=== PATIENT | female | born 1980 | race Caucasian/White ===

== ENCOUNTER 2017-09-15 08:32 | Day surgery (SDC) | payer BC ==
[2017-09-14 09:51] LABS: CHLORIDE,CL 109 mmol/L (98-110); SODIUM,NA 140 mmol/L (136-146)
[~2017-09-15 08:32] MED LIST: Albuterol/Ipratropium 3.0-0.5 MG/3 ML Neb Soln NEB ONE; Fluorescein 5 ML Vial ONE; Sodium Chloride 0.9% 10 ML Syringe FLUSH PRN; Sodium Chloride 0.9% 2.5 ML Syringe FLUSH PRN; ceFAZolin 2 GM in Premix Bag 1 BAG IV ONE
[2017-09-15] MEDS: Lactated Ringers 1,000 ML IV SCH ×3 (09:02→22:16)
--- NOTE | 2017-09-15 09:24 | PCM.PREANE ---
Preanesthetic Assessment - Anesthesia/Transfusion/Family Hx Anesthesia History: Prior Anesthesia Without Reaction Family History of Anesthesia Reaction: No Transfusion History: No Prior Transfusion(s) Intubation History: Unknown - Review of Systems General: No Symptoms Pulmonary: No Symptoms Cardiovascular: No Symptoms Gastrointestinal: No Symptoms Neurological: No Symptoms Other: Reports: None - Physical Assessment NPO Status Date: 09/14/17 NPO Status Time: 23:00 Height: 1.57 m Weight: 116.573 kg ASA Class: 2 Mental Status: Alert & Oriented x3 Airway Class: Mallampati = 2 Dentition: Reports: Broken Tooth/Teeth (x2 upper front incision), Missing Tooth/ Teeth (multiple missing upper and lower on borh sides) Thyro-Mental Finger Breadths: 3 Mouth Opening Finger Breadths: 3 ROM/Head Extension: Full Lungs: Clear to Auscultation, Normal Respiratory Effort Cardiovascular: Regular Rate, Regular Rhythm - Lab Values: Laboratory Last Values WBC 10.15 K/uL (4.0-11.0) 09/14/17 08:45 RBC 4.32 M/uL (4.30-5.90) 09/14/17 08:45 Hgb 13.0 g/dL (12.0-16.0) 09/14/17 08:45 Hct 38.2 % (36.0-46.0) 09/14/17 08:45 MCV 88.4 fL (80.0-98.0) 09/14/17 08:45 MCH 30.1 pg (27.0-32.0) 09/14/17 08:45 MCHC 34.0 g/dL (31.0-37.0) 09/14/17 08:45 RDW Std Deviation 42.6 fl (28.0-62.0) 09/14/17 08:45 RDW Coeff of Eduin 13 % (11.0-15.0) 09/14/17 08:45 Plt Count 283 K/uL (150-400) 09/14/17 08:45 MPV 10.60 fL (7.40-12.00) 09/14/17 08:45 Nucleated RBC % 0.0 /100WBC 09/14/17 08:45 Nucleated RBCs # 0 K/uL 09/14/17 08:45 Sodium 140 mmol/L (136-146) 09/14/17 08:45 Potassium 3.9 mmol/L (3.5-5.1) 09/14/17 08:45 Chloride 109 mmol/L (98-110) 09/14/17 08:45 Carbon Dioxide 24 mmol/L (21-31) 09/14/17 08:45 BUN 9 mg/dL (6.0-23.0) 09/14/17 08:45 Creatinine 0.9 mg/dL (0.6-1.5) 09/14/17 08:45 Est Cr Clr Drug Dosing 68.35 mL/min 09/14/17 08:45 Estimated GFR (MDRD) > 60.0 ml/min 09/14/17 08:45 Glucose 100 mg/dL (60-110) 09/14/17 08:45 Calcium 8.7 mg/dL (8.8-10.8) L 09/14/17 08:45 HCG, Qual NEGATIVE (NEG) 09/14/17 08:45 Blood Type B POSITIVE 09/14/17 08:45 Antibody Screen NEGATIVE 09/14/17 08:45 - Allergies Allergies/Adverse Reactions: Allergies Allergy/AdvReac Type Severity Reaction Status Date / Time Influenza Virus Vaccines Allergy Anaphylactic Verified 09/12/17 16:23 Shock methylprednisolone Allergy Rash Verified 09/12/17 16:23 Sulfa (Sulfonamide Allergy Rash Verified 09/12/17 16:23 Antibiotics) eggs Allergy Hives Uncoded 09/12/17 16:23 - Blood Blood Available: No - Anesthesia Plan Pre-Op Medication Ordered: None - Acknowledgements Anesthesia Type Planned: General Anesthesia Pt an Appropriate Candidate for the Planned Anesthesia: Yes Alternatives and Risks of Anesthesia Discussed w Pt/Guardian: Yes Pt/Guardian Understands and Agrees with Anesthesia Plan: Yes PreAnesthesia Questionnaire Other HEENT History: wears glasses/contacts Respiratory History: Reports: Asthma (mainly exercize induced) 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: 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, 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 Musculoskeletal History: Reports: Back Pain, Chronic, Neck Pain, Chronic Neurological History: Reports: Migraines Psychiatric History: Reports: Anxiety, Depression Endocrine/Metabolic History: Reports: Obesity/BMI 30+ Dermatologic History: Reports: Psoriasis - Past Surgical History GI Surgical History: Reports: Appendectomy, Cholecystectomy Female Surgical History: Reports: Tubal Ligation, Other (See Below) Other Female Surgeries/Procedures: laparoscopies x2 - SUBSTANCE USE Smoking Status *Q: Former Smoker Tobacco Use Within Last Twelve Months: Cigarettes Recreational Drug Use History: No - HOME MEDS Home Medications: Home Meds Acetaminophen 1,000 mg PO Q6H PRN 09/12/17 [History] Albuterol Sulfate [Proair Hfa] 1 - 2 puff INH Q4H PRN 09/12/17 [History] Albuterol [Ventolin HFA] 1 - 2 puff INH Q4H PRN 09/12/17 [History] Beclomethasone Dipropionate [Qvar] 1 puff INH BID 09/12/17 [History] Celecoxib 200 mg PO DAILY 09/12/17 [History] DULoxetine HCl [Duloxetine HCl] 90 mg PO DAILY 09/12/17 [History] Ipratropium/Albuterol Sulfate [Iprat-Albut 0.5-3(2.5) mg/3 ml] 1 dose INH QID [History] Methocarbamol 750 mg PO QID PRN 09/12/17 [History] Topiramate 100 mg PO TID 09/12/17 [History] - CURRENT (IN HOUSE) MEDS Current Meds: Current Medications Lactated Ringer's (Ringers, Lactated) 1,000 mls @ 125 mls/hr IV ASDIRECTED WAQAS Last Admin: 09/15/17 09:02 Dose: 125 mls/hr Sodium Chloride (Saline Flush) 10 ml FLUSH ASDIRECTED PRN PRN Reason: Keep Vein Open Sodium Chloride (Saline Flush) 2.5 ml FLUSH ASDIRECTED PRN PRN Reason: Keep Vein Open Discontinued Medications Albuterol/Ipratropium (Duoneb 3.0-0.5 Mg/3 Ml) 3 ml NEB ONETIME ONE Stop: 09/15/17 07:13 Fluorescein Sodium (Ak-Fluor) Confirm Administered Dose 5 ml .ROUTE .STK-MED ONE Stop: 09/15/17 07:23 Cefazolin Sodium/Dextrose 2 gm (/ Premix) 50 mls @ 100 mls/hr IV ONETIME ONE Stop: 09/14/17 08:57
[2017-09-15] MEDS ORDERED: Albuterol 0.083% 2.5 MG/3 ML Neb Soln ONE (09:29)
[2017-09-15] MEDS ORDERED: Albuterol/Ipratropium 3.0-0.5 MG/3 ML Neb Soln ONE (09:31)
[2017-09-15] MEDS ORDERED: Succinylcholine/Normal Saline 200 MG/10 ML Syringe ONE (09:44)
[2017-09-15] MEDS ORDERED: Ondansetron 4 MG/2 ML SDV ONE (09:44)
[2017-09-15] MEDS ORDERED: Rocuronium 10 MG/ML 10 ML Syringe ONE (09:44)
[2017-09-15] MEDS ORDERED: Lidocaine 2% 5 ML SDV ONE (09:44)
[2017-09-15] MEDS ORDERED: Midazolam 1 MG/ML 2 ML SDV ONE (09:45)
[2017-09-15] MEDS ORDERED: fentaNYL 250 MCG/5 ML SDV ONE (09:45)
[2017-09-15] MEDS ORDERED: Propofol 200 MG/20 ML SDV ONE (09:45)
[2017-09-15] MEDS ORDERED: ceFAZolin 1 GM Vial ONE (09:47)
[2017-09-15] MEDS ORDERED: Sodium Chloride 0.9% 20 ML ONE (09:47)
[2017-09-15] MEDS ORDERED: Furosemide 40 MG/4 ML VIAL ONE (10:38)
[2017-09-15] MEDS ORDERED: fentaNYL 100 MCG/2 ML SDV ONE ×2 (10:40→11:01)
[2017-09-15] MEDS ORDERED: Neostigmine Methylsulfate 1 MG/ML 5 ML Syringe ONE (10:41)
[2017-09-15] MEDS ORDERED: Dexamethasone 4 MG/ML 5 ML MDV ONE (10:48)
[2017-09-15] MEDS ORDERED: ePHEDrine 50 MG/ML SDV ONE (10:49)
[2017-09-15] MEDS ORDERED: Acetaminophen/oxyCODONE 325-5 MG Tab PO PRN (11:24)
[2017-09-15] MEDS ORDERED: Promethazine 25 MG/ML SDV IM PRN (11:24)
[2017-09-15] MEDS ORDERED: Morphine 2 MG/ML Syringe IVPUSH PRN (11:24)
[2017-09-15] MEDS ORDERED: Ondansetron 4 MG/2 ML SDV IVPUSH PRN (11:24)
[2017-09-15] MEDS ORDERED: Morphine 4 MG/ML Syringe IVPUSH PRN (11:24)
[2017-09-15] MEDS ORDERED: Ketorolac 30 MG/ML SDV IVPUSH ONE (11:24)
--- NOTE | 2017-09-15 11:28 | PCM.OPNOTE ---
- General Post-Op/Procedure Note Date of Surgery/Procedure: 09/15/17 Operative Procedure(s): TVH,TVT and Cysto Pre Op Diagnosis: Bleeding, JESUS Post-Op Diagnosis: Same Anesthesia Technique: General ET Tube Primary Surgeon: Vaibhav Moya Pen Tester: Radhika Handy EBL in mLs: 100 Complications: None Condition: Good
[2017-09-15] MEDS: Ketorolac 30 MG/ML SDV IVPUSH PRN ×2 (11:53→18:35)
[2017-09-15] MEDS: fentaNYL 100 MCG/2 ML SDV IVPUSH PRN ×2 (11:54→12:01)
--- NOTE | 2017-09-15 12:21 | OR ---
SURGEON: Vaibhav Moya MD DATE OF PROCEDURE: 09/15/2017 PREOPERATIVE DIAGNOSIS: Menometrorrhagia, stress urinary incontinence. POSTOPERATIVE DIAGNOSIS: Menometrorrhagia, stress urinary incontinence. OPERATION PERFORMED: Total vaginal hysterectomy and tension-free vaginal tape being Solex tension- free vaginal tape and cystoscopy. WESTERN TACK ASSEMBLY LINE WORKER: DANIEL Jasso. ANESTHESIA: General endotracheal intubation, Nikos Esquivel and Dr. Valenzuela. ESTIMATED BLOOD LOSS: 100 mL. COMPLICATIONS: None. FINDINGS: Uterus about 8 weeks' size. Both ovaries essentially normal. Her tube previously was removed from her previous tubal ligation. INDICATIONS FOR SURGERY: Beverly refer to the admit note. PROCEDURE IN DETAIL: The patient was brought to the OR, properly identified, and prepped and draped in sterile fashion as usual and after taken a time-out straight catheter was used to empty the bladder. Short weighted speculum placed in the vagina and then circular incision in the vaginal mucosa was done. Using electrocautery port, the posterior cul-de-sac was entered posteriorly with a Rubi scissor and the peritoneum, and the vagina tacked posteriorly with 2-0 Vicryl and held for further identification. The uterosacral ligament was identified from both sides, clamped with curved Zeppelin, transected, and suture ligated with 2-0 Vicryl pop-off. Same thing was done with the cardinal ligament and then cervicovesical space was entered anteriorly. The bladder retracted completely away from the operative field and the peritoneal cavity was entered anteriorly. Broad ligament was clamped with curved zeppelin from both sides, transected, and suture ligated with 2-0 Vicryl pop-off. The uterine vessel suture ligated at this step. Next, the uterus was delivered posteriorly and then superior pedicle was clamped with 90-degree zeppelin, transected. Both ovaries looked normal and they were preserved. The superior pedicle was tied twice with 2-0 tie and the tube was already removed. The uterosacral ligament and cardinal ligament anchored to the vagina at 3 and 9 o'clock for added vaginal support and then the inspection of the operative field shows no oozing, no bleeding. The vaginal cuff was closed with 2-0 Vicryl interrupted [id number] suture. Once these are done, attention was paid to the anterior vaginal wall and the anterior vaginal beneath the urethra was infiltrated with copious amount of normal saline. It was incised in the midline using electrocautery and dissected in a tunneling fashion to create a tunnel for the Solyx TVT. Once that was created, the Solyx TVT was anchored behind the pubic rami on both sides and with due amount of tension to elevate the urethrovesical angle, and then we proceeded to close the anterior vaginal incision with 2-0 Vicryl continuous interlocking suture. While we were doing that, we asked Anesthesia to give the patient fluorescein and then cystoscopy was performed. The bladder was intact. Both ureteric orifices were seen with the dye coming from both of them, thus the patency of both ureters verified. Satisfied with these findings, the procedure ended. Instrument and sponge count was correct. The patient tolerated the procedure well, went to recovery room in stable general condition. CAESAR ADAN /[id number]
[2017-09-15] MEDS ORDERED: Belladonna Alkaloids/Opium 16.2-30 MG Supp RECTAL ONE (12:24)
[2017-09-15] MEDS ORDERED: Belladonna Alkaloids/Opium 16.2-30 MG Supp ONE (12:25)
--- NOTE | 2017-09-15 12:43 | PCM.POSTAN ---
POST ANESTHESIA ASSESSMENT - MENTAL STATUS Mental Status: Alert, Oriented - RESPIRATORY Respiratory Status: Respiratory Rate WNL, Airway Patent, O2 Saturation Stable - CARDIOVASCULAR CV Status: Pulse Rate WNL, Blood Pressure Stable - GASTROINTESTINAL GI Status: No Symptoms - PAIN Pain Score: 2 - POST OP HYDRATION Hydration Status: Adequate & Stable - OBSERVATIONS Free Text/Narrative:: no anesthesia problems
[2017-09-15] MEDS: Acetaminophen/oxyCODONE 325-5 MG Tab PO PRN (14:16)
[2017-09-16] MEDS: Ketorolac 30 MG/ML SDV IVPUSH PRN (02:03)
[2017-09-16 06:19] LABS: CHLORIDE,CL 106 mmol/L (98-110); SODIUM,NA 137 mmol/L (136-146)
--- NOTE | 2017-09-16 07:34 | PCM48HPAN ---
Post Anesthesia Note - EVALUATION WITHIN 48HRS OF ANESTHETIC Vital Signs in Normal Range: Yes Patient Participated in Evaluation: Yes Respiratory Function Stable: Yes Airway Patent: Yes Cardiovascular Function Stable: Yes Hydration Status Stable: Yes Pain Control Satisfactory: Yes (States having bladder spasms) Nausea and Vomiting Control Satisfactory: Yes (Eating crackers at bedside) Mental Status Recovered: Yes
--- NOTE | 2017-09-16 08:52 | PCM.SURGPN ---
- General Info Date of Service: 09/16/17 POD#: 1 Functional Status: Reports: Pain Controlled - Review of Systems General: Reports: No Symptoms HEENT: Reports: No Symptoms Pulmonary: Reports: No Symptoms Cardiovascular: Reports: No Symptoms Gastrointestinal: Reports: No Symptoms Genitourinary: Reports: No Symptoms Musculoskeletal: Reports: No Symptoms Skin: Reports: No Symptoms Neurological: Reports: No Symptoms Psychiatric: Reports: No Symptoms - Patient Data Vitals - Most Recent: Last Vital Signs Temp 35.6 C 09/16/17 08:32 Pulse 83 09/16/17 08:32 Resp 20 09/16/17 08:32 BP 127/89 09/16/17 08:32 Pulse Ox 96 09/16/17 08:32 Weight - Most Recent: 116.573 kg I&O - Last 24 Hours: Intake & Output 09/15/17 09/16/17 09/16/17 22:59 06:59 14:59 Intake Total 653 2089 Output Total 550 2150 Balance 103 -61 Lab Results Last 24 Hrs: Laboratory Results - last 24 hr 09/16/17 09/16/17 Range/Units 05:14 05:14 WBC 15.38 H (4.0-11.0) K/uL RBC 3.84 L (4.30-5.90) M/uL Hgb 11.6 L (12.0-16.0) g/dL Hct 33.6 L (36.0-46.0) % MCV 87.5 (80.0-98.0) fL MCH 30.2 (27.0-32.0) pg MCHC 34.5 (31.0-37.0) g/dL RDW Std Deviation 40.8 (28.0-62.0) fl RDW Coeff of Eduin 13 (11.0-15.0) % Plt Count 280 (150-400) K/uL MPV 10.40 (7.40-12.00) fL Neut % (Auto) 75.0 (48.0-80.0) % Lymph % (Auto) 17.6 (16.0-40.0) % [place] % (Auto) 7.3 (0.0-15.0) % Eos % (Auto) 0.0 (0.0-7.0) % Baso % (Auto) 0.1 (0.0-1.5) % Neut # (Auto) 11.5 H (1.4-5.7) K/uL Lymph # (Auto) 2.7 H (0.6-2.4) K/uL [place] # (Auto) 1.1 H (0.0-0.8) K/uL Eos # (Auto) 0.0 (0.0-0.7) K/uL Baso # (Auto) 0.0 (0.0-0.1) K/uL Nucleated RBC % 0.0 /100WBC Nucleated RBCs # 0 K/uL Sodium 137 (136-146) mmol/L Potassium 3.7 (3.5-5.1) mmol/L Chloride 106 (98-110) mmol/L Carbon Dioxide 24 (21-31) mmol/L BUN 6 (6.0-23.0) mg/dL Creatinine 0.7 (0.6-1.5) mg/dL Est Cr Clr Drug Dosing 87.87 mL/min Estimated GFR (MDRD) > 60.0 ml/min Glucose 109 (60-110) mg/dL Calcium 8.8 (8.8-10.8) mg/dL Med Orders - Current: Current Medications Fentanyl (Sublimaze) 50 mcg IVPUSH Q5M PRN PRN Reason: Pain (severe 7-10) Stop: 09/16/17 09:38 Last Admin: 09/15/17 12:01 Dose: 50 mcg Lactated Ringer's (Ringers, Lactated) 1,000 mls @ 125 mls/hr IV ASDIRECTED ON LICENSE OF [facility] Last Admin: 09/15/17 22:16 Dose: 125 mls/hr Ketorolac Tromethamine (Toradol) 30 mg IVPUSH Q6H PRN PRN Reason: Pain (severe 7-10) Stop: 09/20/17 11:24 Last Admin: 09/16/17 02:03 Dose: 30 mg Morphine Sulfate (Morphine) 2 mg IVPUSH Q2H PRN PRN Reason: Pain (severe 7-10) Last Admin: 09/15/17 16:23 Dose: 2 mg Morphine Sulfate (Morphine) 4 mg IVPUSH Q2H PRN PRN Reason: Pain (severe 7-10) Last Admin: 09/15/17 12:17 Dose: 4 mg Ondansetron HCl (Zofran) 4 mg IVPUSH Q6H PRN PRN Reason: Nausea/Vomiting Last Admin: 09/15/17 21:05 Dose: 4 mg Oxycodone/Acetaminophen (Percocet 325-5 Mg) 1 tab PO Q4H PRN PRN Reason: Pain (moderate 4-6) Last Admin: 09/15/17 21:03 Dose: 1 tab Oxycodone/Acetaminophen (Percocet 325-5 Mg) 2 tab PO Q4H PRN PRN Reason: Pain (moderate 4-6) Last Admin: 09/15/17 14:16 Dose: 2 tab Promethazine HCl (Phenergan) 25 mg IM Q6H PRN PRN Reason: Nausea/Vomiting Sodium Chloride (Saline Flush) 10 ml FLUSH ASDIRECTED PRN PRN Reason: Keep Vein Open Sodium Chloride (Saline Flush) 2.5 ml FLUSH ASDIRECTED PRN PRN Reason: Keep Vein Open Discontinued Medications Albuterol (Proventil Neb Soln) Confirm Administered Dose 2.5 mg .ROUTE .STK-MED ONE Stop: 09/15/17 09:30 Last Admin: 09/15/17 09:32 Dose: Not Given Albuterol/Ipratropium (Duoneb 3.0-0.5 Mg/3 Ml) 3 ml NEB ONETIME ONE Stop: 09/15/17 07:13 Last Admin: 09/15/17 09:32 Dose: 3 ml Albuterol/Ipratropium (Duoneb 3.0-0.5 Mg/3 Ml) Confirm Administered Dose 3 ml .ROUTE .STK-MED ONE Stop: 09/15/17 09:32 Last Admin: 09/15/17 13:05 Dose: Not Given Belladonna Alkaloids/Opium (B & O Supprettes No. 15a) 1 supp RECTAL ONETIME ONE Stop: 09/15/17 12:25 Last Admin: 09/15/17 12:30 Dose: 1 supp Belladonna Alkaloids/Opium (B & O Supprettes No. 15a) Confirm Administered Dose 1 supp .ROUTE .STK-MED ONE Stop: 09/15/17 12:26 Last Admin: 09/15/17 13:05 Dose: Not Given Cefazolin Sodium (Ancef) Confirm Administered Dose 2 gm .ROUTE .STK-MED ONE Stop: 09/15/17 09:48 Dexamethasone (Dexamethasone) Confirm Administered Dose 20 mg .ROUTE .STK-MED ONE Stop: 09/15/17 10:49 Ephedrine Sulfate (Ephedrine Sulfate) Confirm Administered Dose 50 mg .ROUTE .STK-MED ONE Stop: 09/15/17 10:50 Fentanyl (Sublimaze) Confirm Administered Dose 250 mcg .ROUTE .STK-MED ONE Stop: 09/15/17 09:46 Fentanyl (Sublimaze) Confirm Administered Dose 100 mcg .ROUTE .STK-MED ONE Stop: 09/15/17 10:41 Fentanyl (Sublimaze) Confirm Administered Dose 100 mcg .ROUTE .STK-MED ONE Stop: 09/15/17 11:02 Fluorescein Sodium (Ak-Fluor) Confirm Administered Dose 5 ml .ROUTE .STK-MED ONE Stop: 09/15/17 07:23 Furosemide (Lasix) Confirm Administered Dose 40 mg .ROUTE .STK-MED ONE Stop: 09/15/17 10:39 Glycopyrrolate () Confirm Administered Dose 1 mg .ROUTE .STK-MED ONE Stop: 09/15/17 10:42 Cefazolin Sodium/Dextrose 2 gm (/ Premix) 50 mls @ 100 mls/hr IV ONETIME ONE Stop: 09/14/17 08:57 Last Admin: 09/15/17 13:05 Dose: Not Given Sodium Chloride (Normal Saline) Confirm Administered Dose 20 mls @ as directed .ROUTE .STK-MED ONE Stop: 09/15/17 09:48 Ketorolac Tromethamine (Toradol) 30 mg IVPUSH ONETIME ONE Stop: 09/15/17 11:25 Last Admin: 09/15/17 13:05 Dose: Not Given Lidocaine (Xylocaine-Mpf 2%) Confirm Administered Dose 5 ml .ROUTE .STK-MED ONE Stop: 09/15/17 09:45 Midazolam HCl (Versed 1 Mg/Ml) Confirm Administered Dose 2 mg .ROUTE .STK-MED ONE Stop: 09/15/17 09:46 Neostigmine Methylsulfate (Neostigmine) Confirm Administered Dose 5 mg .ROUTE .STK-MED ONE Stop: 09/15/17 10:42 Ondansetron HCl (Zofran) Confirm Administered Dose 4 mg .ROUTE .STK-MED ONE Stop: 09/15/17 09:45 Propofol (Diprivan 20 Ml) Confirm Administered Dose 200 mg .ROUTE .STK-MED ONE Stop: 09/15/17 09:46 Rocuronium [place] (Zemuron) Confirm Administered Dose 100 mg .ROUTE .STK-MED ONE Stop: 09/15/17 09:45 Succinylcholine Chloride (Succinylcholine In Ns Pf) Confirm Administered Dose 200 mg .ROUTE .STK-MED ONE Stop: 09/15/17 09:45 - Exam Wound/Incisions: Healing Well General: Alert, Oriented HEENT: Pupils Equal Neck: Supple Lungs: Clear to Auscultation, Normal Respiratory Effort Cardiovascular: Regular Rate, Regular Rhythm GI/Abdominal Exam: Normal Bowel Sounds, Soft, Non-Tender, No Organomegaly, No Distention, No Abnormal Bruit, No Mass, Pelvis Stable Extremities: Normal Inspection, Normal Range of Motion, Non-Tender, No Pedal Edema, Normal Capillary Refill Skin: Warm, Dry, Intact Neurological: No New Focal Deficit Psy/Mental Status: Alert, Normal Affect, Normal Mood - Problem List Review Problem List Initiated/Reviewed/Updated: Yes - My Orders Last 24 Hours: Active Orders 24 hr Category Date Time Status Patient Status [ADT] Routine ADT 09/15/17 11:24 Active Notify Provider Vital Signs [RC] ASDIRECTED Care 09/15/17 11:24 Active Oxygen Therapy [RC] ASDIRECTED Care 09/15/17 11:24 Active RT Incentive Spirometry [RC] Q2HWA Care 09/15/17 11:24 Active Up With Assistance [RC] PER UNIT ROUTINE Care 09/15/17 11:24 Active Up ad Indu [RC] PER UNIT ROUTINE Care 09/15/17 11:24 Active Regular Diet [DIET] Diet 09/15/17 Dinner Active Acetaminophen/oxyCODONE [Percocet 325-5 MG] Med 09/15/17 11:24 Active 1 tab PO Q4H PRN Acetaminophen/oxyCODONE [Percocet 325-5 MG] Med 09/15/17 11:24 Active 2 tab PO Q4H PRN Ketorolac [Toradol] Med 09/15/17 11:24 Active 30 mg IVPUSH Q6H PRN Morphine Med 09/15/17 11:24 Active 2 mg IVPUSH Q2H PRN Morphine Med 09/15/17 11:24 Active 4 mg IVPUSH Q2H PRN Ondansetron [Zofran] Med 09/15/17 11:24 Active 4 mg IVPUSH Q6H PRN Promethazine [Phenergan] Med 09/15/17 11:24 Active 25 mg IM Q6H PRN fentaNYL [Sublimaze] Med 09/15/17 09:38 Active 50 mcg IVPUSH Q5M PRN Peripheral IV Discontinue [OM.PC] Routine Oth 09/15/17 11:24 Ordered Sequential Compression Device [OM.PC] Per Unit Routine Oth 09/15/17 11:24 Ordered Resuscitation Status Routine Resus Stat 09/15/17 11:24 Ordered Medication Orders Fentanyl (Sublimaze) 50 mcg IVPUSH Q5M PRN PRN Reason: Pain (severe 7-10) Stop: 09/16/17 09:38 Last Admin: 09/15/17 12:01 Dose: 50 mcg Admin: 09/15/17 11:54 Dose: 50 mcg Lactated Ringer's (Ringers, Lactated) 1,000 mls @ 125 mls/hr IV ASDIRECTED WAQAS Last Admin: 09/15/17 22:16 Dose: 125 mls/hr Infusion: 09/15/17 21:28 Dose: 125 mls/hr Admin: 09/15/17 13:28 Dose: 125 mls/hr Infusion: 09/15/17 13:28 Dose: 125 mls/hr Admin: 09/15/17 09:02 Dose: 125 mls/hr Ketorolac Tromethamine (Toradol) 30 mg IVPUSH Q6H PRN PRN Reason: Pain (severe 7-10) Stop: 09/20/17 11:24 Last Admin: 09/16/17 02:03 Dose: 30 mg Admin: 09/15/17 18:35 Dose: 30 mg Admin: 09/15/17 11:53 Dose: 30 mg Morphine Sulfate (Morphine) 2 mg IVPUSH Q2H PRN PRN Reason: Pain (severe 7-10) Last Admin: 09/15/17 16:23 Dose: 2 mg Morphine Sulfate (Morphine) 4 mg IVPUSH Q2H PRN PRN Reason: Pain (severe 7-10) Last Admin: 09/15/17 12:17 Dose: 4 mg Ondansetron HCl (Zofran) 4 mg IVPUSH Q6H PRN PRN Reason: Nausea/Vomiting Last Admin: 09/15/17 21:05 Dose: 4 mg Oxycodone/Acetaminophen (Percocet 325-5 Mg) 1 tab PO Q4H PRN PRN Reason: Pain (moderate 4-6) Last Admin: 09/15/17 21:03 Dose: 1 tab Oxycodone/Acetaminophen (Percocet 325-5 Mg) 2 tab PO Q4H PRN PRN Reason: Pain (moderate 4-6) Last Admin: 09/15/17 14:16 Dose: 2 tab Promethazine HCl (Phenergan) 25 mg IM Q6H PRN PRN Reason: Nausea/Vomiting Sodium Chloride (Saline Flush) 10 ml FLUSH ASDIRECTED PRN PRN Reason: Keep Vein Open Sodium Chloride (Saline Flush) 2.5 ml FLUSH ASDIRECTED PRN PRN Reason: Keep Vein Open - Assessment Assessment (Free Text/Narrative):: Status post vaginal hysterectomy and patient is doing well on regular diet and voiding without any problem no vaginal bleeding her lab work is within normal limits - Plan Plan (Free Text/Narrative):: I'm sending the patient home today prescription for Percocet 7.5/325 for postoperative pain is given she is to come to see me in the office in 2 weeks
[2017-09-16] MEDS: Acetaminophen/oxyCODONE 325-5 MG Tab PO PRN (10:51)
== END 2017-09-16 11:30 | disposition home or self-care (01) ==
LOC: MW.SDS 08:32 → MW.MS 11:24 → MW.SDS 09-16 11:30
PROVIDERS: ATTEND Obstetrics & Gynecology
DX: N92.1 Excessive and frequent menstruation with irregular cycle (principal); N39.3 Stress incontinence (female) (male); G43.909 Migraine, unspecified, not intractable, without status migrainosus; G89.29 Other chronic pain; M54.2 Cervicalgia; F32.9 Major depressive disorder, single episode, unspecified; F41.9 Anxiety disorder, unspecified; Z87.891 Personal history of nicotine dependence; Z88.7 Allergy status to serum and vaccine; Z88.2 Allergy status to sulfonamides; Z88.8 Allergy status to other drugs, medicaments and biological substances; Z91.012 Allergy to eggs; Z79.899 Other long term (current) drug therapy; Z82.49 Family history of ischemic heart disease and other diseases of the circulatory system; Z83.3 Family history of diabetes mellitus; Z98.51 Tubal ligation status
CPT/HCPCS: 36415; 57288; 58260; 80048; 84703; 85025; 85027; 86850; 86900; 86901; 93005; 94640; A9270; J0690; J1100; J1885; J1940; J2250; J2270; J2405; J3010; J7120; 00944; 88307; C1781; J2704

== ENCOUNTER 2017-12-29 08:36 | Day surgery (SDC) | payer BC ==
[~2017-12-29 08:36] MED LIST changes: -Albuterol/Ipratropium 3.0-0.5 MG/3 ML Neb Soln NEB ONE; -Fluorescein 5 ML Vial ONE; +Lactated Ringers 1,000 ML IV SCH; +Lidocaine 2% 5 ML SDV ONE; +Midazolam 1 MG/ML 2 ML SDV ONE; +Propofol 200 MG/20 ML SDV ONE; -ceFAZolin 2 GM in Premix Bag 1 BAG IV ONE; +fentaNYL 100 MCG/2 ML SDV ONE
--- NOTE | 2017-12-29 09:12 | PCM.PREANE ---
Preanesthetic Assessment - Anesthesia/Transfusion/Family Hx Anesthesia History: Prior Anesthesia Without Reaction Family History of Anesthesia Reaction: No Transfusion History: No Prior Transfusion(s) Intubation History: Unknown - Review of Systems General: No Symptoms Pulmonary: No Symptoms Cardiovascular: No Symptoms Gastrointestinal: Diarrhea Neurological: No Symptoms Other: Reports: None - Physical Assessment Height: 1.6 m Weight: 116.573 kg ASA Class: 2 Mental Status: Alert & Oriented x3 Airway Class: Mallampati = 2 Dentition: Reports: Normal Dentition, Broken Tooth/Teeth (bront uppe incisor') Thyro-Mental Finger Breadths: 3 Mouth Opening Finger Breadths: 3 ROM/Head Extension: Full Lungs: Clear to Auscultation, Normal Respiratory Effort Cardiovascular: Regular Rate, Regular Rhythm - Allergies Allergies/Adverse Reactions: Allergies Allergy/AdvReac Type Severity Reaction Status Date / Time Influenza Virus Vaccines Allergy Anaphylactic Verified 12/26/17 14:32 Shock methylprednisolone Allergy Vomiting Verified 12/26/17 14:32 Sulfa (Sulfonamide Allergy Rash Verified 12/26/17 14:32 Antibiotics) eggs Allergy Hives Uncoded 12/26/17 14:32 - Blood Blood Available: No - Anesthesia Plan Pre-Op Medication Ordered: None - Acknowledgements Anesthesia Type Planned: MAC Pt an Appropriate Candidate for the Planned Anesthesia: Yes Alternatives and Risks of Anesthesia Discussed w Pt/Guardian: Yes Pt/Guardian Understands and Agrees with Anesthesia Plan: Yes PreAnesthesia Questionnaire Other HEENT History: wears glasses/contacts Respiratory History: Reports: Asthma Other Respiratory History: uses rescue inhaler mainly in the winter Gastrointestinal History: Reports: Chronic Diarrhea, GERD, Helicobacter Pylori 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, 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 Musculoskeletal History: Reports: Back Pain, Chronic, Neck Pain, Chronic Neurological History: Reports: Migraines Psychiatric History: Reports: Anxiety, Depression Endocrine/Metabolic History: Reports: Obesity/BMI 30+ (BMI 45.5) Dermatologic History: Reports: Psoriasis - Past Surgical History GI Surgical History: Reports: Appendectomy, Cholecystectomy Female Surgical History: Reports: Hysterectomy, Tubal Ligation, Other (See Below) Other Female Surgeries/Procedures: laparoscopies x2, TVT - SUBSTANCE USE Smoking Status *Q: Former Smoker (quit 9 months ago) Tobacco Use Within Last Twelve Months: Cigarettes Second Hand Smoke Exposure: No Recreational Drug Use History: No - HOME MEDS Home Medications: Home Meds Acetaminophen 1,000 mg PO Q6H PRN 09/12/17 [History] Albuterol Sulfate [Proair Hfa] 1 - 2 puff INH Q4H PRN 09/12/17 [History] Beclomethasone Dipropionate [Qvar] 1 - 2 puff INH BID 09/12/17 [History] Celecoxib 200 mg PO DAILY 09/12/17 [History] DULoxetine HCl [Duloxetine HCl] 120 mg PO DAILY 09/12/17 [History] Methocarbamol 750 mg PO QID PRN 09/12/17 [History] Topiramate 100 mg PO TID 09/12/17 [History] LORazepam 0.5 - 1 mg PO DAILY PRN 12/26/17 [History] - CURRENT (IN HOUSE) MEDS Current Meds: Current Medications Lactated Ringer's (Ringers, Lactated) 1,000 mls @ 125 mls/hr IV ASDIRECTED WAQAS Sodium Chloride (Saline Flush) 10 ml FLUSH ASDIRECTED PRN PRN Reason: Keep Vein Open Sodium Chloride (Saline Flush) 2.5 ml FLUSH ASDIRECTED PRN PRN Reason: Keep Vein Open Sodium Chloride (Saline Flush) 10 ml FLUSH ASDIRECTED PRN PRN Reason: Keep Vein Open Sodium Chloride (Saline Flush) 2.5 ml FLUSH ASDIRECTED PRN PRN Reason: Keep Vein Open Discontinued Medications Fentanyl (Sublimaze) Confirm Administered Dose 100 mcg .ROUTE .STK-MED ONE Stop: 12/29/17 08:12 Lidocaine (Xylocaine-Mpf 2%) Confirm Administered Dose 5 ml .ROUTE .STK-MED ONE Stop: 12/29/17 08:12 Midazolam HCl (Versed 1 Mg/Ml) Confirm Administered Dose 2 mg .ROUTE .STK-MED ONE Stop: 12/29/17 08:12 Propofol (Diprivan 20 Ml) Confirm Administered Dose 400 mg .ROUTE .STK-MED ONE Stop: 12/29/17 08:12
[2017-12-29] MEDS ORDERED: Propofol 200 MG/20 ML SDV ONE (09:28)
--- NOTE | 2017-12-29 10:02 | PCM.OPNOTE ---
- General Post-Op/Procedure Note Date of Surgery/Procedure: 12/29/17 Operative Procedure(s): Diagnostic EGD and colonoscopy Findings: Normal EGD and colonoscopy Pre Op Diagnosis: GERD, chronic diarrhea Post-Op Diagnosis: Normal EGD and colonoscopy Anesthesia Technique: GLORIA Primary Surgeon: Darlene Cramer Condition: Good
--- NOTE | 2017-12-29 10:24 | PCM48HPAN ---
Post Anesthesia Note - EVALUATION WITHIN 48HRS OF ANESTHETIC Vital Signs in Normal Range: Yes Patient Participated in Evaluation: Yes Respiratory Function Stable: Yes Airway Patent: Yes Cardiovascular Function Stable: Yes Hydration Status Stable: Yes Pain Control Satisfactory: Yes Nausea and Vomiting Control Satisfactory: Yes Mental Status Recovered: Yes Resp Rate: 19 - COMMENTS/OBSERVATIONS Free Text/Narrative:: no anesthesia problems
--- NOTE | 2017-12-29 13:12 | OR ---
SURGEON: DARLENE CRAMER MD DATE OF PROCEDURE: 12/29/2017 PREOPERATIVE DIAGNOSES: 1. Reflux. 2. Chronic diarrhea. POSTOPERATIVE DIAGNOSES: Normal esophagogastroduodenoscopy and colonoscopy. ENDOSCOPIST: Darlene Cramer MD. ANESTHESIA: Monitored anesthesia care. INSTRUMENT USED: Olympus endoscope and colonoscope. EXTENT OF EXAM: To the second portion of duodenum, to the cecum. PREPARATION: Fair. LIMITATIONS: None. INDICATION FOR EXAMINATION: The patient is a 37-year-old female, who presents with chronic diarrhea. She had her gallbladder removed several years ago and ever since then, has been having 10 to 20 loose bowel movements per day. On further questioning, the patient also complains of reflux, which she does not treat with any over-the- counter medications. The patient and I discussed the need for diagnostic EGD and colonoscopy. We discussed the procedures as well as the expected perioperative course. We discussed the risks including bleeding, infection, or damage to surrounding structures including perforation. The patient verbalized understanding and wishes to proceed. PROCEDURE IN DETAIL: The patient was brought to the endoscopy suite and placed in the left lateral decubitus position. A time-out was completed verifying the patient's name, age, date of , allergies, and procedure to be performed. Monitored anesthesia care was induced and a bite block was placed in the patient's mouth. Continuous oxygen was provided via nasal cannula throughout the procedure. After adequate sedation was achieved, a well lubricated endoscope was placed in the patient's mouth and advanced under direct visualization to the second portion of the duodenum. This appeared normal and a photograph was taken. The scope was then fully withdrawn while examining the color, texture, anatomy, and integrity of the mucosa of the upper GI tract. The duodenum appeared normal. The scope was then brought into the stomach. Photograph was taken of the pylorus as well as the GE junction. The patient had some bilious appearing clear fluid in the stomach at the time of the scope. This was suctioned out. The gastric mucosa was free of inflammation or any ulceration. Biopsies were taken of the gastric antrum, body, and fundus, and sent for H. pylori testing and histologic review. The scope was then brought into the distal esophagus. A photograph was taken of the GE junction, which appeared normal. I closely inspected the distal esophageal mucosa. There was no evidence of esophagitis. The remainder of the esophageal mucosa appeared normal. The scope was removed and this portion of procedure was terminated. A digital rectal exam was performed. This exam was within normal limits. A well lubricated colonoscope was inserted in the rectum and advanced under direct visualization to the level of the cecum. The cecum was identified by both visual and anatomic landmarks. A photograph was taken of the cecal cap. I was unable to retroflex the scope within the cecum due to looping of the scope more proximally. The scope was then fully withdrawn while examining the color, texture, anatomy, integrity, mucosa from the cecum to the anal canal. The patient had a fair prep and required an irrigation in order to adequately visualize the chino of the colon. After careful inspection, however, the colonic mucosa appeared normal with no evidence of inflammation or ulceration. No polyps were seen. The scope was then brought into the rectum and retroflexed to allow visualization of the anal canal opening. This appeared normal and a photograph was taken. The scope was then straightened out and removed from the patient. The cecum to anus time was 7 minutes. The patient tolerated the procedure well and was taken to PACU in stable condition. ENDOSCOPIC DIAGNOSES: Normal appearing esophagogastroduodenoscopy and colonoscopy. Follow up with the patient in clinic in 2 weeks to discuss these findings. JESS ADAN /[id number]
== END 2017-12-29 10:30 | disposition home or self-care (01) ==
LOC: MW.SDS 08:36
PROVIDERS: ATTEND Surgery
DX: K52.9 Noninfective gastroenteritis and colitis, unspecified (principal); K21.9 Gastro-esophageal reflux disease without esophagitis; K31.89 Other diseases of stomach and duodenum; E28.2 Polycystic ovarian syndrome; F41.9 Anxiety disorder, unspecified; J45.909 Unspecified asthma, uncomplicated; F32.9 Major depressive disorder, single episode, unspecified; E66.9 Obesity, unspecified; Z68.42 Body mass index [BMI] 45.0-49.9, adult; Z90.49 Acquired absence of other specified parts of digestive tract; Z98.890 Other specified postprocedural states; Z87.891 Personal history of nicotine dependence; Z88.7 Allergy status to serum and vaccine; Z88.8 Allergy status to other drugs, medicaments and biological substances
CPT/HCPCS: 43239; 45378; J2250; J3010; J7120; 00813; 88305; 88312; J2704

== ENCOUNTER 2018-12-10 02:35 | Emergency (ER) | payer BC ==
[2018-12-10] MEDS ORDERED: Albuterol/Ipratropium 3.0-0.5 MG/3 ML Neb Soln NEB ONE (03:06)
--- NOTE | 2018-12-10 03:10 | EDM.PDOC ---
ED HPI GENERAL MEDICAL PROBLEM - General Chief Complaint: Respiratory Problem Stated Complaint: HEADACHE Time Seen by Provider: 12/10/18 03:10 Source of Information: Reports: Patient - History of Present Illness INITIAL COMMENTS - FREE TEXT/NARRATIVE: HISTORY AND PHYSICAL: History of present illness: [Patient with asthma presents with persistent we she does have duo nebs at home and is on a steroid she did been seen by her primary in the last week and declined an antibiotic at that time She has improved with DuoNeb and Solu-Medrol here No fever nausea vomiting chills sweats able speak in full sentences nonlabored breathing] patient does have a persistent cough Review of systems: As per history of present illness and below otherwise all systems reviewed and negative. Past medical history: As per history of present illness and as reviewed below otherwise noncontributory. Surgical history: As per history of present illness and as reviewed below otherwise noncontributory. Social history: No reported history of drug or alcohol abuse. Family history: As per history of present illness and as reviewed below otherwise noncontributory. Physical exam: HEENT: Atraumatic, normocephalic, pupils reactive, negative for conjunctival pallor or scleral icterus, mucous membranes moist, throat clear, neck supple, nontender, trachea midline. Lungs: Clear to auscultation on inspiration slight end expiratory wheeze, breath sounds equal bilaterally, chest nontender. Heart: S1S2, regular, negative for clicks, rubs, or JVD. Abdomen: Soft, nondistended, nontender. Negative for masses or hepatosplenomegaly. Negative for costovertebral tenderness. Pelvis: Stable nontender. Genitourinary: Deferred. Rectal: Deferred. Extremities: Atraumatic, negative for cords or calf pain. Neurovascular unremarkable. Neuro: Awake, alert, oriented. Cranial nerves II through XII unremarkable. Cerebellum unremarkable. Motor and sensory unremarkable throughout. Exam nonfocal. Diagnostics: [Chest x-ray plain films ] Therapeutics: [DuoNeb Solu-Medrol 125 mg IM Azithromycin 500 mg by mouth now ] Adria Impression: [ bronchitis Chronic history of baseline ] Definitive disposition and diagnosis as appropriate pending reevaluation and review of above. chest from coughing Pain Score (Numeric/FACES): 2 - Related Data Allergies Allergy/AdvReac Type Severity Reaction Status Date / Time Influenza Virus Vaccines Allergy Anaphylactic Verified 12/26/17 14:32 Shock methylprednisolone Allergy Vomiting Verified 12/26/17 14:32 Sulfa (Sulfonamide Allergy Rash Verified 12/26/17 14:32 Antibiotics) eggs Allergy Hives Uncoded 12/26/17 14:32 Home Meds: Home Meds Albuterol Sulfate [Proair Hfa] 1 - 2 puff INH Q4H PRN 09/12/17 [History] DULoxetine HCl [Duloxetine HCl] 120 mg PO DAILY 09/12/17 [History] Methocarbamol 750 mg PO QID PRN 09/12/17 [History] Topiramate 100 mg PO TID 09/12/17 [History] LORazepam 0.5 - 1 mg PO DAILY PRN 12/26/17 [History] Past Medical History HEENT History: Reports: Impaired Vision Other HEENT History: wears glasses/contacts Respiratory History: Reports: Asthma Other Respiratory History: uses rescue inhaler mainly in the winter Gastrointestinal History: Reports: Chronic Diarrhea, GERD, Helicobacter Pylori [employer] History: Reports: 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, 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 Musculoskeletal History: Reports: Back Pain, Chronic, Neck Pain, Chronic Neurological History: Reports: Migraines Psychiatric History: Reports: Anxiety, Depression Endocrine/Metabolic History: Reports: Obesity/BMI 30+ Dermatologic History: Reports: Psoriasis - Infectious Disease History Infectious Disease History: Reports: Chicken Pox, Shingles - Past Surgical History GI Surgical History: Reports: Appendectomy, Cholecystectomy Female Surgical History: Reports: Hysterectomy Other Female Surgeries/Procedures: laparoscopies x2 Social & Family History - Family History Family Medical History: Noncontributory - Tobacco Use Smoking Status *Q: Never Smoker - Caffeine Use Caffeine Use: Reports: Coffee - Recreational Drug Use Recreational Drug Use: No ED ROS GENERAL - Review of Systems Review Of Systems: See Below ED EXAM, GENERAL - Physical Exam Exam: See Below Course - Vital Signs Last Recorded V/S: Last Vital Signs Temp 96.9 F 12/10/18 02:44 Pulse 98 12/10/18 02:44 Resp 16 12/10/18 02:44 BP 143/96 H 12/10/18 02:44 Pulse Ox 98 12/10/18 02:44 - Orders/Labs/Meds Orders: Active Orders 24 hr Category Date Time Status RT Aerosol Therapy [RC] ASDIRECTED Care 12/10/18 03:06 Active Azithromycin [Zithromax] Med 12/10/18 04:20 Stat 500 mg PO NOW STA Meds: Medications Discontinued Medications Generic Name Dose Route Start Last Admin Trade Name Cindy PRN Reason Stop Dose Admin Albuterol/Ipratropium 3 ml 12/10/18 03:06 12/10/18 03:11 Duoneb 3.0-0.5 Mg/3 Ml NEB 12/10/18 03:07 3 ml ONETIME ONE Administration Departure - Departure Time of Disposition: 04:22 Disposition: Home, Self-Care 01 Condition: Good Clinical Impression: Bronchitis, Pulmonary infiltrate on chest x-ray - Discharge Information Referrals: PCP,None [Primary Care Provider] - Forms: ED Department Discharge Additional Instructions: The following information is given to patients seen in the emergency department who are being discharged to home. This information is to outline your options for follow-up care. We provide all patients seen in our emergency department with a follow-up referral. The need for follow-up, as well as the timing and circumstances, are variable depending upon the specifics of your emergency department visit. If you don't have a primary care physician on staff, we will provide you with a referral. We always advise you to contact your personal physician following an emergency department visit to inform them of the circumstance of the visit and for follow-up with them and/or the need for any referrals to a consulting specialist. The emergency department will also refer you to a specialist when appropriate. This referral assures that you have the opportunity for follow-up care with a specialist. All of these measure are taken in an effort to provide you with optimal care, which includes your follow-up. Under all circumstances we always encourage you to contact your private physician who remains a resource for coordinating your care. When calling for follow-up care, please make the office aware that this follow-up is from your recent emergency room visit. If for any reason you are refused follow-up, please contact the [facility] emergency department at and asked to speak to the emergency department charge nurse. - My Orders Last 24 Hours: My Active Orders 12/10/18 03:06 RT Aerosol Therapy [RC] ASDIRECTED 12/10/18 04:20 Azithromycin [Zithromax] 500 mg PO NOW STA - Assessment/Plan Last 24 Hours: My Active Orders 12/10/18 03:06 RT Aerosol Therapy [RC] ASDIRECTED 12/10/18 04:20 Azithromycin [Zithromax] 500 mg PO NOW STA
--- NOTE | 2018-12-10 03:45 | CR ---
INDICATION: Shortness of breath TECHNIQUE: Chest 2 views. COMPARISON: None FINDINGS: Lung volumes are low which accentuates the cardiac size. Normal pulmonary vasculature. No focal infiltrate, effusion, or pneumothorax. No acute osseous abnormality. IMPRESSION: No sign of acute disease. Dictated by Maricel Garsia MD @ Dec 10 2018 3:44AM Signed by Dr. Maricel Garsia @ Dec 10 2018 3:44AM
[2018-12-10] MEDS ORDERED: Azithromycin 250 MG Tab PO STA (04:20)
== END 2018-12-10 04:30 | disposition home or self-care (01) ==
LOC: MW.ED 02:35
DX: J40 Bronchitis, not specified as acute or chronic (principal); F41.9 Anxiety disorder, unspecified; F32.9 Major depressive disorder, single episode, unspecified; Z88.2 Allergy status to sulfonamides; Z91.012 Allergy to eggs; Z88.7 Allergy status to serum and vaccine; Z88.8 Allergy status to other drugs, medicaments and biological substances; Z79.899 Other long term (current) drug therapy
CPT/HCPCS: 71046; 94640; 99285; A9270; J7620-GY

== ENCOUNTER 2019-03-08 11:07 | Day surgery (SDC) | payer BC ==
[~2019-03-08 11:07] MED LIST changes: +Betamethasone Acetate/Betamethasone Sod Phosphate 30 MG/5 ML MDV ONE; +Iopamidol 200-M 10 ML vial ITHECAL ONE; -Lactated Ringers 1,000 ML IV SCH; -Midazolam 1 MG/ML 2 ML SDV ONE; -Propofol 200 MG/20 ML SDV ONE; +Ropivacaine 0.5% 5 MG/ML 30 ML SDV ONE; -Sodium Chloride 0.9% 10 ML Syringe FLUSH PRN; -Sodium Chloride 0.9% 2.5 ML Syringe FLUSH PRN; -fentaNYL 100 MCG/2 ML SDV ONE
--- NOTE | 2019-03-08 20:18 | OR ---
SURGEON: Mile Harman D.O. DATE OF PROCEDURE: 03/08/2019 PRIMARY SURGEON: Mile Harman D.O. OPERATING ROOM STAFF PRESENT: 1. Domingo Dealney. 2. Marck Hernandez RN. 3. Marco Crooks RT. WOUND CLASS: I. PREOPERATIVE DIAGNOSIS: Right sacroiliac joint arthropathy. POSTOPERATIVE DIAGNOSIS: Right sacroiliac joint arthropathy. PROCEDURE PERFORMED: 1. Right sacroiliac joint injection. 2. Fluoroscopic guidance for needle placement. 3. Local with oral Valium for sedation. SCREENING QUESTIONS: The patient answered "No" to all the followin. Are you allergic to iodine, Betadine or latex? 2. Do you have a bleeding disorder? 3. Do you have any joint replacements, heart valve replacements or a pacemaker? 4. Are you on any anti-inflammatories or blood thinners? 5. Do you have any current local or systemic infections? MEDICAL NECESSITY: This is a patient with a history of severe chronic low back pain and sacroiliac joint irritation with pain over the sacral sulcus and the buttocks region who comes in for the above diagnostic and therapeutic procedure. Please see medical necessity note attached. This procedure is being done in accordance with guidelines as written by the [employer] (RIGOBERTO). DESCRIPTION OF PROCEDURE: The patient had the procedure thoroughly explained including all possible risks, benefits and alternatives. Consent was signed in my clinic indicating understanding and willingness to proceed. The patient presented to the outpatient [facility] and was escorted to the dressing room to disrobe and change into a hospital gown. Preoperative vital signs were taken and stable. The patient reported that Valium was taken prior to the procedure. The patient was brought to the procedure room and placed in the prone position on the procedure room table. A pillow was placed under the hips in order to flatten the lumbar lordosis. The back was prepped with ChloraPrep and sterilely draped. All personnel in the operating room were dressed in appropriate attire including surgical scrubs, head and shoe covers. This was to ensure sterility while in the treatment room. During the time fluoroscopy was in use all personnel in the operating room wore lead jacobo with thyroid collars. Sterile technique was used during the procedure. The patient was awake and conversant throughout the procedure. The fluoroscope was positioned to provide an oblique view of the sacroiliac joint. There was no evidence of infection at the site of needle insertion. The skin was anesthetized with 2% Lidocaine with a sterile 27-gauge 1.5 inch needle. Then under fluoroscopy a 22-gauge 3.5 inch spinal needle was placed within the sacroiliac joint in the lower one-third of the joint. IsoVue-200 contrast dye was injected under live fluoroscopy and no intravascular flow pattern was observed. After negative aspiration of heme, the following solution was injected: 0.5% Ropivacaine, Celestone and 2% Lidocaine. The patient tolerated the procedure well and vital signs were stable during and after the procedure. The staff escorted the patient to the recovery area and the patient was released to home in stable condition after a brief stay in the recovery room monitored by the nurse. The patient was given both oral and written discharge and follow up instructions. Recommended follow up in two weeks. The patient is able to contact the office if there are any additional problems or questions in the meantime. The patient was given discharge instruction and verbalizes understanding including understanding of those signs and symptoms that would require emergency care. PREOPERATIVE PAIN: 10. POSTOPERATIVE PAIN: 10/05. FOLLOWUP: Follow up in the Pain Clinic in 3 weeks. TEVIN / ANTIONETTE /[id number]
== END 2019-03-08 13:29 ==
LOC: MW.SDS 11:07
PROVIDERS: ATTEND Anesthesiology
DX: M12.88 Other specific arthropathies, not elsewhere classified, other specified site (principal)
CPT/HCPCS: G0260; J0702; J2001; J2795; Q9966

== ENCOUNTER 2019-10-21 18:09 | Emergency (ER) | payer BC ==
[2019-10-21] MEDS ORDERED: Sodium Chloride 0.9% 1,000 ML IV ONE (18:26)
[2019-10-21] MEDS ORDERED: Albuterol/Ipratropium 3.0-0.5 MG/3 ML Neb Soln NEB ONE (18:27)
[2019-10-21 19:04] LABS: BLOOD UREA NITROGEN,BUN 20 mg/dL (7.0-18.0); CARBON DIOXIDE,CO2 21.2 mmol/L (21.0-32.0); CHLORIDE,CL 101 mmol/L (98-107); GLUCOSE RANDOM 95 mg/dL (74-106); POTASSIUM,K 4.3 mmol/L (3.5-5.1); SODIUM,NA 135 mmol/L (136-145)
--- NOTE | 2019-10-21 19:26 | CR ---
--- Chest: 2 views of the chest are obtained. Comparison: Prior chest x-ray of 12/10/18. Increased density is noted within the lingula. This appears slightly more prominent than expected for an area of atelectasis and could represent small area of pneumonia. Lungs otherwise are clear. Heart size and mediastinum are normal. Bony structures are unremarkable. Surgical clips are seen within the upper abdomen. Impression: 1. Increased density within the lingula as described above. 2. Other findings which are believed to be incidental. Diagnostic code #3 Study was dictated in [place] Standard Time
--- NOTE | 2019-10-21 19:40 | EDM.PDOC ---
ED HPI GENERAL MEDICAL PROBLEM - General Chief Complaint: Respiratory Problem Stated Complaint: BREATHING PROBLEM Time Seen by Provider: 10/21/19 18:21 Source of Information: Reports: Patient History Limitations: Reports: No Limitations - History of Present Illness INITIAL COMMENTS - FREE TEXT/NARRATIVE: HISTORY AND PHYSICAL: History of present illness: Patient is a 39-year-old female who presents to the ED today with concern of cough making her feel short of breath. Patient states she has a history of asthma and that she has been having issues with the cough over the past 4 to 5 days. Patient states she also feels as if she has had a fever but has not checked a temperature at home. Patient states that she did call her primary care provider and was put on a steroid. Patient states that she was not seen or evaluated by the primary care provider. Patient states she is taking medrol dose pack and this is the third day of taking it. Patient states that despite taking the medrol dose pack she feels as if she has been more wheezy and has coughing attacks which makes her feel short of breath. Patient denies any other symptoms or concerns. Patient denies chest pain. Denies headache, neck stiff ness, change in vision, syncope, or near syncope. Denies nausea, vomiting, abdominal pain, diarrhea, constipation, or dysuria. Has not noted any blood in urine or stool. Patient has been eating and drinking appropriately. Review of systems: As per history of present illness and below otherwise all systems reviewed and negative. Past medical history: As per history of present illness and as reviewed below otherwise noncontributory. Surgical history: As per history of present illness and as reviewed below otherwise noncontributory. Social history: See social history for further information Family history: As per history of present illness and as reviewed below otherwise noncontributory. Physical exam: General: Patient is alert, oriented, and in no acute distress. Patient sitting comfortably on exam table breathing comfortably. HEENT: Atraumatic, normocephalic, pupils equal and reactive bilaterally, negative for conjunctival pallor or scleral icterus, mucous membranes moist, TMs normal bilaterally, throat clear, neck supple, nontender, trachea midline. No drooling or trismus noted. No meningeal signs. No hot potato voice noted. Lungs: Diffuse wheezing to auscultation, breath sounds equal bilaterally, chest nontender. Heart: S1S2, regular rate and rhythm without overt murmur Abdomen: Soft, nondistended, nontender. Negative for masses or hepatosplenomegaly. Negative for costovertebral tenderness. Pelvis: Stable nontender. Genitourinary: Deferred. Rectal: Deferred. Skin: Intact, warm, dry. No lesions or rashes noted. Extremities: Atraumatic, negative for cords or calf pain. Neurovascular unremarkable. Neuro: Awake, alert, oriented. Cranial nerves II through XII unremarkable. Cerebellum unremarkable. Motor and sensory unremarkable throughout. Exam nonfocal. Notes: Patient 98% on RA. Initially tachycardic at 120s upon arrival. Following therapeutics, rate 95. Admission for observation was offered to mic but patient declines. All risks vs benefits discussed with patient and expresses understanding. Patient states she does have 3 more nebulizers at home and would need a new prescription for these. Patient currently on medrol dose pack but will switch to Prednisone. Discussed importance for follow-up with a primary care provider. Voices understanding and is agreeable to plan of care. Denies any further questions or concerns at this time. Diagnostics: CBC, CMP, UA, EKG, CXR, Influenza Therapeutics: Duoneb, NS Prescription: Prednisone, Duonebs, Levaquin Impression: Community acquired pneumonia, left lobe Asthma exacerbation Plan: 1. Take medication as prescribed. Stop the Medrol Dosepak that has been prescribed to you and take new prescription. 2. You can alternate ibuprofen and Tylenol as directed for pain and discomfort. 3. Use your asthma medications as prescribed to you as directed and as discussed. 4. Return to the ED as needed and as discussed. Definitive disposition and diagnosis as appropriate pending reevaluation and review of above. Chest Pain Score (Numeric/FACES): 5 - Related Data Allergies Allergy/AdvReac Type Severity Reaction Status Date / Time Influenza Virus Vaccines Allergy Anaphylactic Verified 10/21/19 18:15 Shock methylprednisolone Allergy Vomiting Verified 10/21/19 18:15 [From Solu-Medrol] Sulfa (Sulfonamide Allergy Rash Verified 10/21/19 18:15 Antibiotics) eggs Allergy Hives Uncoded 10/21/19 18:15 Home Meds: Home Meds Albuterol Sulfate [Proair Hfa] 1 - 2 puff INH Q4H PRN 09/12/17 [History] DULoxetine HCl [Duloxetine HCl] 120 mg PO DAILY 09/12/17 [History] Topiramate 100 mg PO TID 09/12/17 [History] methocarbamoL [Methocarbamol] 750 mg PO QID PRN 09/12/17 [History] LORazepam 0.5 - 1 mg PO DAILY PRN 12/26/17 [History] Albuterol [Proventil Neb Soln] 3 ml NEB ASDIRECTED 10/21/19 [History] Albuterol/Ipratropium [DuoNeb 3.0-0.5 MG/3 ML] 3 ml NEB ASDIRECTED 10/21/19 [ History] methylPREDNISolone [Medrol Dose Pack] mg PO ASDIRECTED 10/21/19 [History] Past Medical History HEENT History: Reports: Impaired Vision Other HEENT History: wears glasses/contacts Respiratory History: Reports: Asthma Other Respiratory History: uses rescue inhaler mainly in the winter Gastrointestinal History: Reports: Chronic Diarrhea, GERD, Helicobacter Pylori LICENSED MORTICIAN History: Reports: 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, 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 Musculoskeletal History: Reports: Back Pain, Chronic, Neck Pain, Chronic Neurological History: Reports: Migraines Psychiatric History: Reports: Anxiety, Depression Endocrine/Metabolic History: Reports: Obesity/BMI 30+ Dermatologic History: Reports: Psoriasis - Infectious Disease History Infectious Disease History: Reports: Chicken Pox - Past Surgical History GI Surgical History: Reports: Appendectomy, Cholecystectomy Female Surgical History: Reports: Hysterectomy Other Female Surgeries/Procedures: laparoscopies x2 Social & Family History - Family History Family Medical History: Noncontributory - Tobacco Use Smoking Status *Q: Current Every Day Smoker Years of Tobacco use: 26 Packs/Tins Daily: 0.5 - Caffeine Use Caffeine Use: Reports: Coffee, Soda, Tea - Recreational Drug Use Recreational Drug Use: No ED ROS GENERAL - Review of Systems Review Of Systems: Comprehensive ROS is negative, except as noted in HPI. ED EXAM, GENERAL - Physical Exam Exam: See Below (see dictation) Course - Vital Signs Last Recorded V/S: Last Vital Signs Temp 96.8 F 10/21/19 18:16 Pulse 105 H 10/21/19 19:08 Resp 21 H 10/21/19 19:08 BP 117/87 10/21/19 19:08 Pulse Ox 99 10/21/19 19:08 - Orders/Labs/Meds Orders: Active Orders 24 hr Category Date Time Status EKG Documentation Completion [RC] STAT Care 10/21/19 18:26 Active RT Aerosol Therapy [RC] ASDIRECTED Care 10/21/19 18:27 Active Labs: Laboratory Tests 10/21/19 10/21/19 10/21/19 Range/Units 18:34 18:34 19:35 WBC 13.01 H (4.0-11.0) K/uL RBC 5.01 (4.30-5.90) M/uL Hgb 15.6 (12.0-16.0) g/dL Hct 45.3 (36.0-46.0) % MCV 90.4 (80.0-98.0) fL MCH 31.1 (27.0-32.0) pg MCHC 34.4 (31.0-37.0) g/dL RDW Std Deviation 46.3 (28.0-62.0) fl RDW Coeff of Eduin 14 (11.0-15.0) % Plt Count 282 (150-400) K/uL MPV 10.60 (7.40-12.00) fL Neut % (Auto) 79.6 (48.0-80.0) % Lymph % (Auto) 8.3 L (16.0-40.0) % [place] % (Auto) 11.8 (0.0-15.0) % Eos % (Auto) 0.1 (0.0-7.0) % Baso % (Auto) 0.2 (0.0-1.5) % Neut # (Auto) 10.4 H (1.4-5.7) K/uL Lymph # (Auto) 1.1 (0.6-2.4) K/uL [place] # (Auto) 1.5 H (0.0-0.8) K/uL Eos # (Auto) 0.0 (0.0-0.7) K/uL Baso # (Auto) 0.0 (0.0-0.1) K/uL Nucleated RBC % 0.0 /100WBC Nucleated RBCs # 0 K/uL Sodium 135 L (136-145) mmol/L Potassium 4.3 (3.5-5.1) mmol/L Chloride 101 (98-107) mmol/L Carbon Dioxide 21.2 (21.0-32.0) mmol/L BUN 20 H (7.0-18.0) mg/dL Creatinine 1.1 H (0.6-1.0) mg/dL Est Cr Clr Drug Dosing 57.36 mL/min Estimated GFR (MDRD) 55.6 ml/min Glucose 95 (74-106) mg/dL Calcium 9.4 (8.5-10.1) mg/dL Total Bilirubin 0.3 (0.2-1.0) mg/dL AST 18 (15-37) IU/L ALT 28 (14-63) IU/L Alkaline Phosphatase 113 (46-116) U/L Troponin I < 0.050 (0.000-0.056) ng/mL Total Protein 8.2 (6.4-8.2) g/dL Albumin 3.7 (3.4-5.0) g/dL Globulin 4.5 H (2.6-4.0) g/dL Albumin/Globulin Ratio 0.8 L (0.9-1.6) Urine Color YELLOW Urine Appearance CLEAR Urine pH 6.0 (5.0-8.0) Ur Specific [place] 1.010 (1.001-1.035) Urine Protein NEGATIVE (NEGATIVE) mg/dL Urine Glucose (UA) NEGATIVE (NEGATIVE) mg/dL Urine Ketones NEGATIVE (NEGATIVE) mg/dL Urine Occult Blood NEGATIVE (NEGATIVE) Urine Nitrite NEGATIVE (NEGATIVE) Urine Bilirubin NEGATIVE (NEGATIVE) Urine Urobilinogen 0.2 (<2.0) EU/dL Ur Leukocyte Esterase NEGATIVE (NEGATIVE) Meds: Medications Discontinued Medications Generic Name Dose Route Start Last Admin Trade Name Cindy PRN Reason Stop Dose Admin Albuterol/Ipratropium 3 ml 10/21/19 18:27 10/21/19 18:31 Duoneb 3.0-0.5 Mg/3 Ml NEB 10/21/19 18:28 3 ml ONETIME ONE Administration Sodium Chloride 1,000 mls @ 999 mls/hr 10/21/19 18:26 10/21/19 18:39 Normal Saline IV 10/21/19 19:26 999 mls/hr BOLUS ONE Administration Departure - Departure Time of Disposition: 19:52 Disposition: Home, Self-Care 01 Clinical Impression: Community acquired bacterial pneumonia Asthma exacerbation Qualifiers: Asthma severity: unspecified severity Asthma persistence: unspecified Qualified Code(s): J45.901 - Unspecified asthma with (acute) exacerbation - Discharge Information Referrals: Josh Kilpatrick MD [Primary Care Provider] - Forms: ED Department Discharge Additional Instructions: The following information is given to patients seen in the emergency department who are being discharged to home. This information is to outline your options for follow-up care. We provide all patients seen in our emergency department with a follow-up referral. The need for follow-up, as well as the timing and circumstances, are variable depending upon the specifics of your emergency department visit. If you don't have a primary care physician on staff, we will provide you with a referral. We always advise you to contact your personal physician following an emergency department visit to inform them of the circumstance of the visit and for follow-up with them and/or the need for any referrals to a consulting specialist. The emergency department will also refer you to a specialist when appropriate. This referral assures that you have the opportunity for follow-up care with a specialist. All of these measure are taken in an effort to provide you with optimal care, which includes your follow-up. Under all circumstances we always encourage you to contact your private physician who remains a resource for coordinating your care. When calling for follow-up care, please make the office aware that this follow-up is from your recent emergency room visit. If for any reason you are refused follow-up, please contact the [facility] at and asked to speak to the emergency department charge nurse. [facility] [address] [place] [id number] [id number] 1. Take medication as prescribed. Stop the Medrol Dosepak that has been prescribed to you and take new prescription. 2. You can alternate ibuprofen and Tylenol as directed for pain and discomfort. 3. Use your asthma medications as prescribed to you as directed and as discussed. 4. Return to the ED as needed and as discussed. Sepsis Event Note - Evaluation Sepsis Screening Result: No Definite Risk - Focused Exam Vital Signs: Vital Signs Temp Pulse Resp BP Pulse Ox 10/21/19 19:08 105 H 21 H 117/87 99 10/21/19 18:16 96.8 F 114 H 18 149/96 H 98 Date Exam was Performed: 10/21/19 Time Exam was Performed: 19:48 - My Orders Last 24 Hours: My Active Orders 10/21/19 18:26 EKG Documentation Completion [RC] STAT 10/21/19 18:27 RT Aerosol Therapy [RC] ASDIRECTED - Assessment/Plan Last 24 Hours: My Active Orders 10/21/19 18:26 EKG Documentation Completion [RC] STAT 10/21/19 18:27 RT Aerosol Therapy [RC] ASDIRECTED
== END 2019-10-21 20:05 | disposition home or self-care (01) ==
LOC: MW.ED 18:09
DX: J15.9 Unspecified bacterial pneumonia (principal); J45.901 Unspecified asthma with (acute) exacerbation; F32.9 Major depressive disorder, single episode, unspecified; F41.9 Anxiety disorder, unspecified; F17.210 Nicotine dependence, cigarettes, uncomplicated; E66.9 Obesity, unspecified; Z79.899 Other long term (current) drug therapy; Z68.42 Body mass index [BMI] 45.0-49.9, adult; Z88.2 Allergy status to sulfonamides; Z88.7 Allergy status to serum and vaccine; Z88.8 Allergy status to other drugs, medicaments and biological substances; Z91.012 Allergy to eggs
CPT/HCPCS: 36415; 71046; 80053; 81003; 84484; 85025; 93005; 94640; 96360; 99285; J7030; 99283; J7620-GY